=== PATIENT | male | born 1980 | race Caucasian/White ===

== ENCOUNTER → 2021-01-19 | Outpatient (CLI) | payer OTHER ==
[~2021-01-19] MED LIST: LISI-170 PO
[2021-01-19 10:59] LABS: MICROSCOPIC NOT IND
[2021-01-19 11:04] LABS: BASOPHILS % (AUTO) 1 % (0-1); EOSINOPHILS % (AUTO) 4 % (1-7); LYMPHOCYTES % (AUTO) 27 % (22-44); MEAN CORPUSCULAR HEMOGLOBIN 31.8 pg (27.5-34.5); MEAN CORPUSCULAR HGB CONC 34.8 g/dL (33.2-36.2); MONOCYTES % (AUTO) 12 % (2-9); NEUTROPHILS % (AUTO) 56 % (42-75); PLATELET COUNT 282 x10^3/uL (130-400); RED BLOOD COUNT 5.42 x10^6/uL (4.38-5.82); RED CELL DISTRIBUTION WIDTH 12.7 % (9.4-14.8)
[2021-01-19 11:11] LABS: ALANINE AMINOTRANSFERASE 51 U/L (12-78); ANION GAP 4 mmol/L (5-15); CALCIUM 8.9 mg/dL (8.5-10.1); CHLORIDE 106 mmol/L (98-107); CREATININE 1.05 mg/dL (0.7-1.3); INTERNATIONAL NORMALIZED RATIO 0.95 (0.93-1.1); PROTHROMBIN TIME 10.2 Seconds (9.6-11.5)
[2021-01-19 11:13] LABS: ALKALINE PHOSPHATASE 63 U/L (45-117); BILIRUBIN,TOTAL 0.5 mg/dL (0.2-1.0); TOTAL PROTEIN 7.7 g/dL (6.4-8.2)
== END | disposition home or self-care (01) ==
LOC: STAR 10:01
PROVIDERS: ATTEND Neurological Surgery
DX: Z01.818 Encounter for other preprocedural examination (principal); Z01.812 Encounter for preprocedural laboratory examination; Z01.811 Encounter for preprocedural respiratory examination; M54.12 Radiculopathy, cervical region; M47.892 Other spondylosis, cervical region; R79.1 Abnormal coagulation profile; R94.31 Abnormal electrocardiogram [ECG] [EKG]; R82.90 Unspecified abnormal findings in urine; M50.321 Other cervical disc degeneration at C4-C5 level
CPT/HCPCS: 36415; 71046; 72050; 80053; 81003; 85025; 85610; 85730; 93005

== ENCOUNTER 2021-01-29 05:20 | Inpatient (IN) | payer OTHER ==
[~2021-01-29] VITALS: Ht 208.3 cm; Wt 133.1 kg
[2021-01-29] MEDS ORDERED: CHLORHEXIDINE 15 ML UDC PO ONE (06:30)
[2021-01-29] MEDS ORDERED: LACTATED RINGERS 1,000 ML IV SCH (06:30)
[2021-01-29] MEDS ORDERED: MIDAZOLAM 1 MG/ML, 2ML ONE (07:02)
[2021-01-29] MEDS ORDERED: PROPOFOL 100 ML ONE (07:02)
[2021-01-29] MEDS ORDERED: FENTANYL PF 250 MCG/5ML ONE (07:02)
[2021-01-29] MEDS ORDERED: VANCOMYCIN 1,000 MG ONE (07:08)
[2021-01-29] MEDS ORDERED: BUPIVACAINE/PF 0.5% ONE (07:08)
[2021-01-29] MEDS ORDERED: EPINEPHRINE 1 MG/ML, 1ML ONE (07:08)
[2021-01-29] MEDS ORDERED: DEXAMETHASONE 4 MG/ML, 1ML ONE ×3 (07:36→08:33)
[2021-01-29] MEDS ORDERED: CEFAZOLIN 1,000 MG ONE ×2 (07:41→08:23)
[2021-01-29] MEDS ORDERED: LABETALOL 5MG/ML, 20ML IV PRN (08:00)
[2021-01-29] MEDS ORDERED: MEPERIDINE/PF 25MG/0.5ML IVPush PRN (08:00)
[2021-01-29] MEDS ORDERED: hydrALAzine 20 MG/ML, 1ML IV PRN (08:00)
[2021-01-29] MEDS ORDERED: METHOCARBAMOL 1,000 MG in DEXTROSE 5% 100 ML IV PRN (08:00)
[2021-01-29] MEDS ORDERED: HYDROmorphone 1 MG/ML, 1ML INJ IVPush PRN (08:00)
[2021-01-29] MEDS ORDERED: ACETAMINOPHEN 325 MG TABLET PO PRN (08:00)
[2021-01-29] MEDS ORDERED: OXYcodone 5 MG/5 ML ORAL.SOL UDC PO PRN (08:00)
[2021-01-29] MEDS ORDERED: DIAZEPAM 5 MG/ML, 2ML IVPush PRN (08:00)
[2021-01-29] MEDS ORDERED: PROMETHAZINE 25 MG/ML, 1ML IVPush PRN (08:00)
[2021-01-29] MEDS ORDERED: ONDANSETRON 2MG/ML, 2ML IVPush PRN ×2 (08:00→10:00)
[2021-01-29] MEDS ORDERED: PROPOFOL 10 MG/ML, 20ML ONE ×3 (08:09)
[2021-01-29] MEDS ORDERED: ROCURONIUM 10MG/ML,5ML ONE (08:33)
[2021-01-29] MEDS ORDERED: ONDANSETRON 2MG/ML, 2ML ONE (08:34)
[2021-01-29] MEDS ORDERED: SUCCINYLCHOLINE 20 MG/ML, 10ML ONE (08:34)
[2021-01-29] MEDS ORDERED: MEPERIDINE/PF 25MG/ML,1ML ONE (09:52)
[2021-01-29] MEDS ORDERED: FENTANYL PF 100 MCG/2ML ONE (09:52)
[2021-01-29] MEDS: FENTANYL PF 100 MCG/2ML IV PRN ×2 (09:55→10:55)
[2021-01-29] MEDS ORDERED: BISACODYL 10 MG SUPP PR PRN (10:00)
[2021-01-29] MEDS ORDERED: LABETALOL 5MG/ML, 20ML IVPush PRN (10:00)
[2021-01-29] MEDS ORDERED: MAALOX/HYOSCYAMINE/LIDOCAINE 45 ML BTL PO PRN (10:00)
[2021-01-29] MEDS ORDERED: OXYcodone/APAP 5/325MG TABLET PO PRN (10:00)
[2021-01-29] MEDS ORDERED: CYCLOBENZAPRINE 10 MG TABLET PO PRN (10:00)
[2021-01-29] MEDS ORDERED: HYDROcodone/APAP 5/325 TABLET PO PRN (10:00)
[2021-01-29] MEDS ORDERED: morphine SULFATE 10 MG/ML, 1ML IVPush PRN (10:00)
[2021-01-29] MEDS ORDERED: SENNA/DOCUSATE TABLET PO PRN (10:00)
[2021-01-29] MEDS ORDERED: PHARMACY MAY ADJ FOR RENAL FX MC PRN (10:00)
[2021-01-29] MEDS ORDERED: DIPHENHYDRAMINE 25 MG CAPSULE PO PRN (10:30)
[2021-01-29] MEDS ORDERED: ACETAMINOPHEN 650 MG/20.3 ML UDC ONE (10:46)
[2021-01-29] MEDS ORDERED: OXYcodone 5 MG/5 ML ORAL.SOL UDC ONE (10:47)
[2021-01-29 12:55] VITALS: BP 126/87
[2021-01-29] MEDS: D5%-0.9% NACL+KCL 20MEQ 1,000 ML IV SCH ×2 (13:00→20:00)
[2021-01-29] MEDS: CEFAZOLIN PMX 1GM/50ML 50 ML IVPB SCH (16:32)
[2021-01-29] MEDS: DEXAMETHASONE 4 MG/ML, 1ML IVPush SCH ×2 (16:33→21:57)
[2021-01-29 20:32] VITALS: BP 149/85
[2021-01-29] MEDS: FAMOTIDINE 20 MG TABLET PO SCH (20:42)
[2021-01-30] MEDS: CEFAZOLIN PMX 1GM/50ML 50 ML IVPB SCH (00:12)
[2021-01-30 02:05] VITALS: BP 152/89
[2021-01-30] MEDS ORDERED: DEXAMETHASONE 4 MG/ML, 1ML ONE (04:45)
[2021-01-30] MEDS: DEXAMETHASONE 4 MG/ML, 1ML IVPush SCH (04:49)
[2021-01-30] MEDS: D5%-0.9% NACL+KCL 20MEQ 1,000 ML IV SCH (05:33)
[2021-01-30 07:35] VITALS: BP 143/89
[2021-01-30] MEDS ORDERED: CYCL10TA2 PO (08:02)
[2021-01-30] MEDS ORDERED: OXYC1TAB12 PO (08:02)
[2021-01-30] MEDS: FAMOTIDINE 20 MG TABLET PO SCH (08:17)
[2021-01-30] MEDS ORDERED: LISINOPRIL 20 MG TABLET PO SCH (09:00)
[2021-01-30 11:00] VITALS: BP 142/88
== END 2021-01-30 11:20 | disposition home or self-care (01) | DRG 473 ==
LOC: ORIP 05:20 → 4NE 11:27
PROVIDERS: ADMIT Neurological Surgery; ATTEND Neurological Surgery
PROC: 0RG20A0 Fusion of 2 or more Cervical Vertebral Joints with Interbody Fusion Device, Anterior Approach, Anterior Column, Open Approach (ICD-10-PCS; 2021-01-29)
PROC: 01N10ZZ Release Cervical Nerve, Open Approach (ICD-10-PCS; 2021-01-29)
PROC: 4A11X4G Monitoring of Peripheral Nervous Electrical Activity, Intraoperative, External Approach (ICD-10-PCS; 2021-01-29)
PROC: 0RB30ZZ Excision of Cervical Vertebral Disc, Open Approach (ICD-10-PCS; principal; 2021-01-29 10:30)
DX: M47.892 Other spondylosis, cervical region (principal); M48.02 Spinal stenosis, cervical region; M50.123 Cervical disc disorder at C6-C7 level with radiculopathy; Z79.899 Other long term (current) drug therapy
CPT/HCPCS: 72040; S0020; 95938; 95941; C1713; C1776; G0378; J0171; J0690; J1100; J2250; J2405; J2704; J3010; J3370; C1762; J0330; J2800; J7120